=== PATIENT | male | born 1985 | race Hispanic/Latino ===

== ENCOUNTER → 2023-03-07 | Outpatient (CLI) | payer SELFPAY ==
[~2023-03-07] MED LIST: IOHEXOL 350 MG/ML 100ML INFUS..BTL IV ONE; METOPROLOL TARTRATE 1 MG/ML 5ML VIAL IV ONE
== END | disposition home or self-care (01) ==
LOC: RAH 11:28
PROVIDERS: ATTEND Student in an Organized Health Care Education/Training Program
DX: R00.2 Palpitations (principal); R42 Dizziness and giddiness
CPT/HCPCS: 75574; Q9967; J3490